=== PATIENT | female | born 1935 | race Caucasian/White ===

== ENCOUNTER 2017-05-28 23:54 | Emergency (ER) | payer BC, MEDICARE ==
[~2017-05-28] VITALS: Ht 162.6 cm; Wt 61.5 kg
[~2017-05-28 23:54] MED LIST: AMLO10TA2 PO; CARV3.1212 PO; LEVO50TA5 PO; LISI-167 PO; SIMV20TA3 PO; TRIA1TAB3 PO
[2017-05-29] MEDS ORDERED: ONDANSETRON ODT 4 MG ONE (00:45)
[2017-05-29] MEDS ORDERED: ONDANSETRON ODT 4 MG PO ONE (01:00)
[2017-05-29] MEDS ORDERED: METOCLOPRAMIDE 5 MG/ML, 2ML ONE (01:15)
[2017-05-29 01:16] LABS: BASOPHILS # (AUTO) 0.04 x10^3/uL (0-0.1); BASOPHILS % (AUTO) 1 % (0-1); EOSINOPHILS # (AUTO) 0.17 x10^3/uL (0-0.4); EOSINOPHILS % (AUTO) 2 % (1-7); LYMPHOCYTES # (AUTO) 1.44 x10^3/uL (1-3.4); LYMPHOCYTES % (AUTO) 17 % (22-44); MD NO; MEAN CORPUSCULAR HEMOGLOBIN 30.8 pg (27.0-34.8); MEAN CORPUSCULAR HGB CONC 33.6 g/dL (32.4-35.8); MEAN CORPUSCULAR VOLUME 91.7 fL (80-100); MEAN PLATELET VOLUME 8.8 fL (7.4-10.4); MONOCYTES # (AUTO) 0.47 x10^3/uL (0.2-0.8); MONOCYTES % (AUTO) 6 % (2-9); NEUTROPHILS # (AUTO) 6.39 x10^3/uL (1.8-6.8); NEUTROPHILS % (AUTO) 75 % (42-75); PLATELET COUNT 184 x10^3/uL (130-400); RED BLOOD COUNT 4.14 x10^6/uL (3.82-5.3); RED CELL DISTRIBUTION WIDTH 12.7 % (9.6-15.2)
[2017-05-29 01:29] LABS: ALANINE AMINOTRANSFERASE 27 U/L (12-78); ALBUMIN 3.7 g/dL (3.4-5.0); ANION GAP 6 mmol/L (5-15); CALCIUM 9.1 mg/dL (8.5-10.1); CHLORIDE 112 mmol/L (98-107); CREATININE 1.01 mg/dL (0.55-1.02)
[2017-05-29] MEDS ORDERED: METOCLOPRAMIDE 5 MG/ML, 2ML IVPush ONE (01:30)
[2017-05-29] MEDS ORDERED: SODIUM CHLORIDE FLUSH 10ML SYR IVF ONE (01:30)
[2017-05-29 01:32] LABS: ALKALINE PHOSPHATASE 100 U/L (45-117); BILIRUBIN,TOTAL 0.4 mg/dL (0.2-1.0); TOTAL PROTEIN 7.6 g/dL (6.4-8.2); TROPONIN I < 0.015 ng/mL (0.000-0.045)
[2017-05-29 02:26] VITALS: BP 151/67
[2017-05-29] MEDS ORDERED: KETOROLAC 30 MG/1 ML ONE (02:37)
[2017-05-29] MEDS ORDERED: KETOROLAC 30 MG/1 ML IVPush ONE (03:00)
== END 2017-05-29 03:16 | disposition home or self-care (01) ==
LOC: ED 23:59
DX: R42 Dizziness and giddiness (principal); R11.0 Nausea; E78.5 Hyperlipidemia, unspecified; I10 Essential (primary) hypertension; E03.9 Hypothyroidism, unspecified
CPT/HCPCS: 36415; 71045; 80053; 84484; 85025; 93005; 96374; 96375; 99285; J1885; J2765; Q0162

== ENCOUNTER 2017-06-16 19:38 | Emergency (ER) | payer MEDICARE ==
[~2017-06-16] VITALS: Ht 162.6 cm; Wt 61.2 kg
[2017-06-16 20:20] LABS: BASOPHILS # (AUTO) 0.03 x10^3/uL (0-0.1); BASOPHILS % (AUTO) 0 % (0-1); EOSINOPHILS # (AUTO) 0.12 x10^3/uL (0-0.4); EOSINOPHILS % (AUTO) 2 % (1-7); LYMPHOCYTES # (AUTO) 1.82 x10^3/uL (1-3.4); LYMPHOCYTES % (AUTO) 25 % (22-44); MD NO; MEAN CORPUSCULAR HEMOGLOBIN 30.8 pg (27.0-34.8); MEAN CORPUSCULAR HGB CONC 33.6 g/dL (32.4-35.8); MEAN CORPUSCULAR VOLUME 91.6 fL (80-100); MEAN PLATELET VOLUME 8.1 fL (7.4-10.4); MONOCYTES # (AUTO) 0.58 x10^3/uL (0.2-0.8); MONOCYTES % (AUTO) 8 % (2-9); NEUTROPHILS # (AUTO) 4.83 x10^3/uL (1.8-6.8); NEUTROPHILS % (AUTO) 66 % (42-75); PLATELET COUNT 207 x10^3/uL (130-400); RED BLOOD COUNT 4.56 x10^6/uL (3.82-5.3); RED CELL DISTRIBUTION WIDTH 12.7 % (9.6-15.2)
[2017-06-16 20:32] LABS: ANION GAP 8 mmol/L (5-15); CALCIUM 9.4 mg/dL (8.5-10.1); CHLORIDE 108 mmol/L (98-107); CREATININE 1.33 mg/dL (0.55-1.02)
[2017-06-16 20:36] LABS: TROPONIN I < 0.015 ng/mL (0.000-0.045)
[2017-06-16] MEDS ORDERED: hydrALAzine 20 MG/ML, 1ML ONE (20:58)
[2017-06-16] MEDS ORDERED: hydrALAzine 20 MG/ML, 1ML IV ONE (21:00)
[2017-06-16] MEDS ORDERED: SODIUM CHLORIDE FLUSH 10ML SYR IVF ONE (21:00)
[2017-06-16 22:15] VITALS: BP 136/92
[2017-06-16] MEDS ORDERED: DEXAMETHASONE 4 MG TABLET PO ONE (23:30)
[2017-06-16] MEDS ORDERED: ACETAMINOPHEN 325 MG TABLET PO ONE (23:30)
[2017-06-16] MEDS ORDERED: ACETAMINOPHEN 325 MG TABLET ONE (23:34)
[2017-06-16] MEDS ORDERED: DEXAMETHASONE 4 MG TABLET ONE (23:34)
== END 2017-06-16 23:55 | disposition home or self-care (01) ==
LOC: ED 22:04
DX: I10 Essential (primary) hypertension (principal); R51 Headache; K21.9 Gastro-esophageal reflux disease without esophagitis; E78.5 Hyperlipidemia, unspecified; Z90.49 Acquired absence of other specified parts of digestive tract
CPT/HCPCS: 36415; 71045; 80048; 82040; 83880; 84484; 85025; 93005; 96374; 99285; J0360

== ENCOUNTER 2018-07-21 21:40 | Emergency (ER) | payer MEDICARE, BC ==
[~2018-07-21] VITALS: Ht 165.1 cm; Wt 64.0 kg
[~2018-07-21 21:40] MED LIST changes: -AMLO10TA2 PO; +AMLO10TA8 PO
[2018-07-21 21:44] VITALS: BP 153/85
[2018-07-21 22:29] LABS: BASOPHILS # (AUTO) 0.01 x10^3/uL (0-0.1); BASOPHILS % (AUTO) 0 % (0-1); EOSINOPHILS # (AUTO) 0.01 x10^3/uL (0-0.4); EOSINOPHILS % (AUTO) 0 % (1-7); LYMPHOCYTES # (AUTO) 0.98 x10^3/uL (1-3.4); LYMPHOCYTES % (AUTO) 8 % (22-44); MD NO; MEAN CORPUSCULAR HEMOGLOBIN 31.3 pg (27.0-34.8); MEAN CORPUSCULAR VOLUME 92.2 fL (80-100); MEAN PLATELET VOLUME 8.5 fL (7.4-10.4); MONOCYTES # (AUTO) 0.59 x10^3/uL (0.2-0.8); MONOCYTES % (AUTO) 5 % (2-9); NEUTROPHILS # (AUTO) 10.29 x10^3/uL (1.8-6.8); NEUTROPHILS % (AUTO) 87 % (42-75); PLATELET COUNT 226 x10^3/uL (130-400); RED BLOOD COUNT 4.04 x10^6/uL (3.82-5.3); RED CELL DISTRIBUTION WIDTH 13.2 % (9.6-15.2)
[2018-07-21] MEDS ORDERED: CYCLOBENZAPRINE 10 MG TABLET PO ONE (22:30)
[2018-07-21 22:40] LABS: ALANINE AMINOTRANSFERASE 22 U/L (12-78); ALBUMIN 3.8 g/dL (3.4-5.0); ANION GAP 7 mmol/L (5-15); CALCIUM 9.3 mg/dL (8.5-10.1); CHLORIDE 115 mmol/L (98-107); CREATININE 1.42 mg/dL (0.55-1.02)
[2018-07-21 22:44] LABS: ALKALINE PHOSPHATASE 93 U/L (45-117); BILIRUBIN,TOTAL 0.2 mg/dL (0.2-1.0); TOTAL PROTEIN 7.5 g/dL (6.4-8.2); TROPONIN I < 0.015 ng/mL (0.000-0.045)
[2018-07-21] MEDS ORDERED: CYCLOBENZAPRINE 10 MG TABLET ONE (22:49)
== END 2018-07-21 23:47 | disposition home or self-care (01) ==
LOC: ED 23:33
DX: R07.89 Other chest pain (principal); M54.2 Cervicalgia; I10 Essential (primary) hypertension; E78.5 Hyperlipidemia, unspecified; Z86.39 Personal history of other endocrine, nutritional and metabolic disease
CPT/HCPCS: 36415; 71045; 80053; 84484; 85025; 93005; 99284

== ENCOUNTER 2018-10-24 08:48 | Emergency (ER) | payer MEDICARE, BC ==
[~2018-10-24] VITALS: Ht 162.6 cm; Wt 61.5 kg
[2018-10-24 10:19] VITALS: BP 157/76
== END 2018-10-24 11:19 | disposition home or self-care (01) ==
LOC: ED 11:12
DX: M25.511 Pain in right shoulder (principal); M79.621 Pain in right upper arm; M79.631 Pain in right forearm; R07.89 Other chest pain; I10 Essential (primary) hypertension; E78.5 Hyperlipidemia, unspecified
CPT/HCPCS: 36415; 71045; 80048; 82040; 84484; 85025; 93005; 99284

== ENCOUNTER 2019-01-15 16:22 | Emergency (ER) | payer MEDICARE, BC ==
[~2019-01-15] VITALS: Ht 160 cm; Wt 58.9 kg
[~2019-01-15 16:22] MED LIST changes: +DOCU-131 PO; +DOXY100T PO; +METH750T2 PO; +OMEP-110 PO; +OXYC-302 PO
[2019-01-15 17:59] LABS: BASOPHILS # (AUTO) 0.01 x10^3/uL (0-0.1); BASOPHILS % (AUTO) 0 % (0-1); EOSINOPHILS # (AUTO) 0.13 x10^3/uL (0-0.4); EOSINOPHILS % (AUTO) 2 % (1-7); LYMPHOCYTES % (AUTO) 18 % (22-44); MD NO; MEAN CORPUSCULAR HEMOGLOBIN 31.1 pg (27.0-34.8); MEAN CORPUSCULAR HGB CONC 33.1 g/dL (32.4-35.8); MEAN PLATELET VOLUME 9.2 fL (7.4-10.4); MONOCYTES # (AUTO) 0.64 x10^3/uL (0.2-0.8); MONOCYTES % (AUTO) 8 % (2-9); NEUTROPHILS # (AUTO) 5.78 x10^3/uL (1.8-6.8); NEUTROPHILS % (AUTO) 73 % (42-75); PLATELET COUNT 195 x10^3/uL (130-400); RED BLOOD COUNT 4.13 x10^6/uL (3.82-5.3); RED CELL DISTRIBUTION WIDTH 13.7 % (9.6-15.2)
[2019-01-15 18:07] LABS: ALANINE AMINOTRANSFERASE 20 U/L (12-78); ALBUMIN 3.6 g/dL (3.4-5.0); ANION GAP 6 mmol/L (5-15); CALCIUM 9.3 mg/dL (8.5-10.1); CHLORIDE 107 mmol/L (98-107); CREATININE 1.47 mg/dL (0.55-1.02)
[2019-01-15 18:10] LABS: ALKALINE PHOSPHATASE 110 U/L (45-117); BILIRUBIN,TOTAL 0.5 mg/dL (0.2-1.0); TOTAL PROTEIN 8.1 g/dL (6.4-8.2)
--- NOTE | 2019-01-15 19:00 | NUR ---
first pt contact, pt walked to room with family member, wearing aspen collar as recent neck surgery, notes that she has been having epigastric pain for several days, seen at urgent care and given maalox, works temporarily then symnptoms return, pt takes pantoprazole
--- NOTE | 2019-01-15 19:03 | NUR ---
Leticia rn: Izaiah Galicia would like to be contacted for poc and potential d/c ride. [phone].
--- NOTE | 2019-01-15 19:07 | NUR ---
Leticia rn: Lights turned down and pt given warm blankets for comfort. Awaiting ct at this time. Ua sent to lab.
[2019-01-15 19:22] LABS: CULTURE INDICATED? YES; MICROSCOPIC INDICATED
--- NOTE | 2019-01-15 20:00 | NUR ---
resitng quietly, taking ice chips, very pleasant lady.
[2019-01-15 20:30] VITALS: BP 133/76
--- NOTE | 2019-01-15 21:00 | NUR ---
No changes, chart to MD for re-eval as all results back
[2019-01-15] MEDS ORDERED: FAMOTIDINE 20 MG TABLET ONE (21:18)
[2019-01-15] MEDS ORDERED: FAMOTIDINE 20 MG TABLET PO ONE (21:30)
[2019-01-15] MEDS ORDERED: OMNIPAQUE 350 MG/ML, 100ML BOTTLE ONE (23:44)
== END 2019-01-15 21:28 | disposition home or self-care (01) ==
LOC: ED 21:22
DX: K21.0 Gastro-esophageal reflux disease with esophagitis (principal); I10 Essential (primary) hypertension; E78.5 Hyperlipidemia, unspecified; Z90.49 Acquired absence of other specified parts of digestive tract; Z90.710 Acquired absence of both cervix and uterus
CPT/HCPCS: 36415; 74177; 80053; 81001; 83690; 85025; 87086; 93005; 99284; Q9967

== ENCOUNTER 2019-01-18 07:35 | Inpatient (IN) | payer MEDICARE, BC ==
[~2019-01-18] VITALS: Ht 160 cm; Wt 61.7 kg
[2019-01-18] MEDS ORDERED: MAALOX/HYOSCYAMINE/LIDOCAINE 45 ML BTL ONE (08:05)
--- NOTE | 2019-01-18 08:12 | NUR ---
TASK RN: MEDICATION ADMINISTERED PER ORDER. PT RESTING ON GURNEY. LAB JUST LEFT BEDSIDE. BEDSIDE.
--- NOTE | 2019-01-18 08:15 | NUR ---
EPIGASTRIC BURNING SINCE LAST FRIDAY. UNABLE TO SLEEP OR EAT FOR FOUR DAYS BECAUSE OF THE PAIN. HX OF SAME-CORRECTED WITH ESOPHAGEAL VALVE SURGERY YEARS AGO BUT NOW SYMPTOMS HAVE RETURNED. HAD NEGATIVE CT, CARAFATE/PROTONIX/MOM NOT HELPING WITH RESE HR TO 80. PROVIDER TO BEDSIDE PLAN TO AVOID PIV (FOR NOW PER PROVIDER REQUEST), VENIPUNCTURE LABS AND GI COCKTAIL W/ REFERRAL TO GI SPECIALIST
[2019-01-18 08:23] LABS: BASOPHILS # (AUTO) 0.03 x10^3/uL (0-0.1); BASOPHILS % (AUTO) 1 % (0-1); EOSINOPHILS # (AUTO) 0.07 x10^3/uL (0-0.4); EOSINOPHILS % (AUTO) 1 % (1-7); LYMPHOCYTES # (AUTO) 0.89 x10^3/uL (1-3.4); LYMPHOCYTES % (AUTO) 14 % (22-44); MD NO; MEAN CORPUSCULAR HEMOGLOBIN 30.8 pg (27.0-34.8); MEAN CORPUSCULAR HGB CONC 33.1 g/dL (32.4-35.8); MEAN CORPUSCULAR VOLUME 93.1 fL (80-100); MEAN PLATELET VOLUME 8.8 fL (7.4-10.4); MONOCYTES # (AUTO) 0.45 x10^3/uL (0.2-0.8); MONOCYTES % (AUTO) 7 % (2-9); NEUTROPHILS # (AUTO) 4.81 x10^3/uL (1.8-6.8); NEUTROPHILS % (AUTO) 77 % (42-75); PLATELET COUNT 170 x10^3/uL (130-400); RED BLOOD COUNT 3.99 x10^6/uL (3.82-5.3); RED CELL DISTRIBUTION WIDTH 13.9 % (9.6-15.2)
[2019-01-18] MEDS ORDERED: MAALOX/HYOSCYAMINE/LIDOCAINE 45 ML BTL PO ONE (08:30)
[2019-01-18 08:32] LABS: ALANINE AMINOTRANSFERASE 22 U/L (12-78); ALBUMIN 3.5 g/dL (3.4-5.0); ANION GAP 8 mmol/L (5-15); CALCIUM 9.3 mg/dL (8.5-10.1); CHLORIDE 106 mmol/L (98-107); CREATININE 1.68 mg/dL (0.55-1.02)
[2019-01-18 08:35] LABS: ALKALINE PHOSPHATASE 107 U/L (45-117); BILIRUBIN,TOTAL 0.6 mg/dL (0.2-1.0); TOTAL PROTEIN 7.6 g/dL (6.4-8.2)
--- NOTE | 2019-01-18 08:50 | NUR ---
With reassessment patient reports epigastric pain minimally improved from /10 to 7/10 Provider made aware
[2019-01-18] MEDS ORDERED: SODIUM CHLORIDE FLUSH 10ML SYR IVF ONE (09:00)
[2019-01-18] MEDS ORDERED: FAMOTIDINE 20 MG/2 ML IV ONE (09:00)
[2019-01-18] MEDS ORDERED: SODIUM CHLORIDE 0.9% 1,000ML IVBOLUS ONE (09:00)
--- NOTE | 2019-01-18 09:15 | NUR ---
medic at bedside attempting place pic
[2019-01-18] MEDS ORDERED: FAMOTIDINE 20 MG/2 ML ONE (09:38)
--- NOTE | 2019-01-18 09:40 | NUR ---
MEDICATED PER EMAR (ANTACID/IVF)
--- NOTE | 2019-01-18 09:49 | NUR ---
TO RADIOLOGY FOR ESOPHOGRAM
[2019-01-18] MEDS ORDERED: SODIUM CHLORIDE 0.9% 1,000 ML IV ONE (10:12)
[2019-01-18] MEDS ORDERED: SODIUM CHLORIDE FLUSH 10ML SYR IVF PRN (10:30)
--- NOTE | 2019-01-18 11:18 | NUR ---
ua collected sent to lab
[2019-01-18] MEDS ORDERED: SUCR1ORA5 PO (11:27)
[2019-01-18 11:33] LABS: MICROSCOPIC NOT IND
[2019-01-18 11:45] VITALS: BP 122/76
[2019-01-18 12:07] VITALS: BP 122/76
[2019-01-18] MEDS ORDERED: MORPHINE SULFATE 4 MG/ML, 1ML IVPush PRN (13:00)
[2019-01-18] MEDS ORDERED: MAALOX/HYOSCYAMINE/LIDOCAINE 45 ML BTL PO PRN (13:00)
[2019-01-18] MEDS ORDERED: LABETALOL 5MG/ML, 20ML IVPush PRN (14:30)
[2019-01-18] MEDS ORDERED: ONDANSETRON ODT 4 MG PO PRN (14:30)
[2019-01-18] MEDS ORDERED: ONDANSETRON 2MG/ML, 2ML IVPush PRN (14:30)
[2019-01-18] MEDS: SUCRALFATE 1 GM/10 ML UDC PO SCH ×2 (15:42→20:17)
[2019-01-18] MEDS: PANTOPRAZOLE 40 MG IV IVPush SCH (15:42)
[2019-01-18] MEDS: SODIUM CHLORIDE 0.9% 1,000 ML IV SCH ×2 (15:42→21:00)
[2019-01-18] MEDS: FLUCONAZOLE 200 MG/100 ML 100 ML IV SCH (17:28)
[2019-01-18 19:35] VITALS: BP 145/78
[2019-01-19] MEDS ORDERED: DEXTROSE 5% 1,000 ML IV SCH
[2019-01-19 01:25] VITALS: BP 153/80
[2019-01-19] MEDS: PANTOPRAZOLE 40 MG IV IVPush SCH (04:23)
[2019-01-19] MEDS: SODIUM CHLORIDE 0.9% 1,000 ML IV SCH ×3 (05:00→21:00)
[2019-01-19 05:06] LABS: BASOPHILS # (AUTO) 0.05 x10^3/uL (0-0.1); BASOPHILS % (AUTO) 1 % (0-1); EOSINOPHILS % (AUTO) 2 % (1-7); LYMPHOCYTES # (AUTO) 1.21 x10^3/uL (1-3.4); LYMPHOCYTES % (AUTO) 20 % (22-44); MD NO; MEAN CORPUSCULAR HEMOGLOBIN 30.7 pg (27.0-34.8); MEAN CORPUSCULAR HGB CONC 32.9 g/dL (32.4-35.8); MEAN CORPUSCULAR VOLUME 93.3 fL (80-100); MEAN PLATELET VOLUME 8.9 fL (7.4-10.4); MONOCYTES # (AUTO) 0.58 x10^3/uL (0.2-0.8); MONOCYTES % (AUTO) 10 % (2-9); NEUTROPHILS # (AUTO) 4.05 x10^3/uL (1.8-6.8); NEUTROPHILS % (AUTO) 68 % (42-75); PLATELET COUNT 148 x10^3/uL (130-400); RED BLOOD COUNT 3.61 x10^6/uL (3.82-5.3); RED CELL DISTRIBUTION WIDTH 13.7 % (9.6-15.2)
[2019-01-19 05:18] LABS: ALANINE AMINOTRANSFERASE 21 U/L (12-78); ALBUMIN 3.1 g/dL (3.4-5.0); ANION GAP 8 mmol/L (5-15); CALCIUM 8.7 mg/dL (8.5-10.1); CHLORIDE 110 mmol/L (98-107); CREATININE 1.04 mg/dL (0.55-1.02)
[2019-01-19 05:20] LABS: ALKALINE PHOSPHATASE 91 U/L (45-117); BILIRUBIN,TOTAL 0.6 mg/dL (0.2-1.0); TOTAL PROTEIN 6.6 g/dL (6.4-8.2)
[2019-01-19 07:09] VITALS: BP 132/75
[2019-01-19] MEDS: LEVOTHYROXINE 75 MCG TABLET PO SCH (08:24)
[2019-01-19] MEDS: SUCRALFATE 1 GM/10 ML UDC PO SCH ×3 (08:24→16:09)
[2019-01-19] MEDS: AMLODIPINE 5 MG TABLET PO SCH (08:24)
[2019-01-19] MEDS: SIMVASTATIN 20 MG TABLET PO SCH (08:25)
[2019-01-19] MEDS: CARVEDILOL 3.125 MG TABLET PO SCH (08:25)
[2019-01-19] MEDS ORDERED: POTASSIUM PHOSPHATE 44 MEQ in SODIUM CHLORIDE 0.9% 500 ML IV ONE (08:30)
[2019-01-19 12:34] VITALS: BP 150/84
[2019-01-19] MEDS: PANTOPROZOLE 40MG TABLET PO SCH (16:08)
[2019-01-19] MEDS: ACETAMINOPHEN 325 MG TABLET PO PRN (16:15)
[2019-01-19] MEDS ORDERED: POTASSIUM CHLORIDE 40 MEQ in SODIUM CHLORIDE 0.9% 500 ML IV ONE (16:30)
[2019-01-19 20:09] VITALS: BP 129/81
[2019-01-20] MEDS: SUCRALFATE 1 GM/10 ML UDC PO SCH ×5 (00:16→20:20)
[2019-01-20] MEDS: FLUCONAZOLE 200 MG/100 ML 100 ML IV SCH (00:44)
[2019-01-20 02:49] VITALS: BP 131/86
[2019-01-20] MEDS: SODIUM CHLORIDE 0.9% 1,000 ML IV SCH ×2 (05:00→09:57)
[2019-01-20] MEDS: PANTOPROZOLE 40MG TABLET PO SCH ×2 (06:07→16:20)
[2019-01-20 06:29] LABS: ALANINE AMINOTRANSFERASE 19 U/L (12-78); ALBUMIN 2.9 g/dL (3.4-5.0); ANION GAP 6 mmol/L (5-15); CALCIUM 8.7 mg/dL (8.5-10.1); CHLORIDE 115 mmol/L (98-107); CREATININE 0.82 mg/dL (0.55-1.02)
[2019-01-20 06:32] LABS: ALKALINE PHOSPHATASE 92 U/L (45-117); BILIRUBIN,TOTAL 0.5 mg/dL (0.2-1.0); TOTAL PROTEIN 6.2 g/dL (6.4-8.2)
[2019-01-20 07:45] VITALS: BP 158/82
[2019-01-20] MEDS ORDERED: MAGNESIUM SULFATE PMX 2GM/50ML 50 ML IV ONE (08:30)
[2019-01-20] MEDS: AMLODIPINE 5 MG TABLET PO SCH (08:34)
[2019-01-20] MEDS: LEVOTHYROXINE 75 MCG TABLET PO SCH (08:34)
[2019-01-20] MEDS: SIMVASTATIN 20 MG TABLET PO SCH (08:34)
[2019-01-20] MEDS: CARVEDILOL 3.125 MG TABLET PO SCH (08:34)
[2019-01-20 09:48] LABS: OCCULT BLOOD POSITIVE (NEGATIVE)
[2019-01-20] MEDS ORDERED: POTASSIUM PHOSPHATE 44 MEQ in SODIUM CHLORIDE 0.9% 500 ML IV ONE (11:00)
[2019-01-20 12:43] VITALS: BP 152/82
[2019-01-20] MEDS ORDERED: PROPOFOL 10 MG/ML, 50ML ONE (14:03)
[2019-01-20] MEDS ORDERED: GOLYTELY 4,000ML ORAL.SOL PO ONE (14:30)
[2019-01-20] MEDS ORDERED: ACETAMINOPHEN 325 MG TABLET PO PRN (15:00)
[2019-01-20] MEDS ORDERED: METOPROLOL 1 MG/ML, 5ML IV PRN (15:00)
[2019-01-20] MEDS ORDERED: FENTANYL PF 100 MCG/2ML IV PRN (15:00)
[2019-01-20] MEDS ORDERED: ONDANSETRON 2MG/ML, 2ML IV PRN (15:00)
[2019-01-20 19:42] VITALS: BP 117/71
[2019-01-20] MEDS: MAALOX/HYOSCYAMINE/LIDOCAINE 45 ML BTL PO PRN ×2 (22:54→22:55)
[2019-01-20] MEDS ORDERED: MAALOX/HYOSCYAMINE/LIDOCAINE 45 ML BTL PO PRN (23:00)
[2019-01-21] MEDS: FLUCONAZOLE 200 MG/100 ML 100 ML IV SCH (00:16)
[2019-01-21 01:15] VITALS: BP 129/70
[2019-01-21 05:55] LABS: ALBUMIN 2.9 g/dL (3.4-5.0); ANION GAP 7 mmol/L (5-15); CALCIUM 8.3 mg/dL (8.5-10.1); CHLORIDE 114 mmol/L (98-107)
[2019-01-21 06:00] LABS: ALANINE AMINOTRANSFERASE 21 U/L (12-78); ALKALINE PHOSPHATASE 92 U/L (45-117); BILIRUBIN,TOTAL 0.6 mg/dL (0.2-1.0); CREATININE 0.76 mg/dL (0.55-1.02); TOTAL PROTEIN 6.1 g/dL (6.4-8.2)
[2019-01-21] MEDS: PANTOPROZOLE 40MG TABLET PO SCH (06:11)
[2019-01-21] MEDS: SUCRALFATE 1 GM/10 ML UDC PO SCH ×4 (07:00→20:16)
[2019-01-21 07:36] VITALS: BP_SYST 112; BP_SYST 155; BP_DIAS 70; BP_DIAS 75
[2019-01-21] MEDS ORDERED: MIDAZOLAM 1 MG/ML, 5ML ONE (08:47)
[2019-01-21] MEDS ORDERED: FENTANYL PF 100 MCG/2ML ONE (08:47)
[2019-01-21] MEDS: LEVOTHYROXINE 75 MCG TABLET PO SCH ×2 (09:00→10:58)
[2019-01-21] MEDS: SIMVASTATIN 20 MG TABLET PO SCH ×2 (09:00→10:58)
[2019-01-21] MEDS: AMLODIPINE 5 MG TABLET PO SCH (09:00)
[2019-01-21] MEDS: CARVEDILOL 3.125 MG TABLET PO SCH ×2 (09:00→10:57)
[2019-01-21] MEDS: SODIUM CHLORIDE 0.9% 1,000 ML IV SCH ×2 (10:00→18:00)
[2019-01-21] MEDS: OMEPRAZOLE/SOD. BICARB. PACKET PO SCH ×2 (11:30→20:16)
[2019-01-21 12:54] VITALS: BP 116/66
[2019-01-21 19:10] VITALS: BP 145/79
[2019-01-22] MEDS: FLUCONAZOLE 200 MG/100 ML 100 ML IV SCH (00:01)
[2019-01-22 00:42] VITALS: BP 135/74
[2019-01-22] MEDS: SODIUM CHLORIDE 0.9% 1,000 ML IV SCH ×2 (02:54→11:00)
[2019-01-22] MEDS ORDERED: CALCIUM CARBONATE 500 MG TAB.CHEW ONE (04:40)
[2019-01-22] MEDS ORDERED: CALCIUM CARBONATE 500 MG TAB.CHEW PO ONE (05:00)
[2019-01-22] MEDS: SUCRALFATE 1 GM/10 ML UDC PO SCH ×4 (06:00→21:00)
[2019-01-22 06:16] LABS: BASOPHILS # (AUTO) 0.03 x10^3/uL (0-0.1); BASOPHILS % (AUTO) 1 % (0-1); EOSINOPHILS # (AUTO) 0.07 x10^3/uL (0-0.4); EOSINOPHILS % (AUTO) 1 % (1-7); LYMPHOCYTES # (AUTO) 1.15 x10^3/uL (1-3.4); LYMPHOCYTES % (AUTO) 18 % (22-44); MD NO; MEAN CORPUSCULAR HEMOGLOBIN 31.4 pg (27.0-34.8); MEAN CORPUSCULAR HGB CONC 32.9 g/dL (32.4-35.8); MEAN CORPUSCULAR VOLUME 95.5 fL (80-100); MEAN PLATELET VOLUME 9.3 fL (7.4-10.4); MONOCYTES # (AUTO) 0.47 x10^3/uL (0.2-0.8); MONOCYTES % (AUTO) 7 % (2-9); NEUTROPHILS # (AUTO) 4.83 x10^3/uL (1.8-6.8); NEUTROPHILS % (AUTO) 74 % (42-75); PLATELET COUNT 138 x10^3/uL (130-400); RED BLOOD COUNT 3.53 x10^6/uL (3.82-5.3); RED CELL DISTRIBUTION WIDTH 13.8 % (9.6-15.2)
[2019-01-22 06:29] LABS: ALBUMIN 2.9 g/dL (3.4-5.0); ANION GAP 8 mmol/L (5-15); CALCIUM 8.7 mg/dL (8.5-10.1); CHLORIDE 113 mmol/L (98-107)
[2019-01-22 06:33] LABS: ALANINE AMINOTRANSFERASE 21 U/L (12-78); ALKALINE PHOSPHATASE 93 U/L (45-117); BILIRUBIN,TOTAL 0.6 mg/dL (0.2-1.0); CREATININE 0.73 mg/dL (0.55-1.02); TOTAL PROTEIN 6.3 g/dL (6.4-8.2)
[2019-01-22 07:29] VITALS: BP 171/81
[2019-01-22] MEDS: OMEPRAZOLE/SOD. BICARB. PACKET PO SCH ×2 (08:23→19:48)
[2019-01-22] MEDS: SIMVASTATIN 20 MG TABLET PO SCH (08:23)
[2019-01-22] MEDS: CARVEDILOL 3.125 MG TABLET PO SCH (08:24)
[2019-01-22] MEDS: LEVOTHYROXINE 75 MCG TABLET PO SCH (08:24)
[2019-01-22] MEDS: AMLODIPINE 5 MG TABLET PO SCH (08:24)
[2019-01-22] MEDS ORDERED: MAGNESIUM SULFATE 4 GM in SODIUM CHLORIDE 0.9% 100 ML IV ONE (08:30)
[2019-01-22] MEDS ORDERED: POTASSIUM PHOSPHATE 44 MEQ in SODIUM CHLORIDE 0.9% 500 ML IV SCH (08:30)
[2019-01-22 13:33] VITALS: BP 153/91
[2019-01-22] MEDS: POTASSIUM CHLORIDE 20 MEQ TAB.ER.PRT PO SCH ×2 (13:34→18:05)
[2019-01-22] MEDS: POTASSIUM PHOSPHATE 44 MEQ in SODIUM CHLORIDE 0.9% 500 ML IV SCH ×2 (13:35→23:02)
[2019-01-22] MEDS ORDERED: TRAZODONE 50MG TABLET PO PRN (16:00)
[2019-01-22] MEDS ORDERED: POTASSIUM CHLORIDE 20 MEQ TAB.ER.PRT ONE (18:03)
[2019-01-22 19:32] VITALS: BP 145/79
[2019-01-22 19:44] VITALS: BP 145/77
[2019-01-23] MEDS: FLUCONAZOLE 200 MG/100 ML 100 ML IV SCH (00:34)
[2019-01-23] MEDS: ACETAMINOPHEN 325 MG TABLET PO PRN (01:52)
[2019-01-23 02:05] VITALS: BP 115/75
[2019-01-23 05:57] LABS: ANION GAP 5 mmol/L (5-15); CALCIUM 7.7 mg/dL (8.5-10.1); CHLORIDE 115 mmol/L (98-107); CREATININE 0.77 mg/dL (0.55-1.02)
[2019-01-23 08:08] VITALS: BP 120/76
[2019-01-23] MEDS ORDERED: ONDA4TAB13 PO (09:18)
[2019-01-23] MEDS ORDERED: TRAZ50TA66 PO (09:18)
[2019-01-23] MEDS ORDERED: Maalox/Hyoscyamine/Lidocaine PO (09:18)
[2019-01-23] MEDS ORDERED: OMEP1PAC PO ×2 (09:19)
[2019-01-23] MEDS: OMEPRAZOLE/SOD. BICARB. PACKET PO SCH (09:25)
[2019-01-23] MEDS: CARVEDILOL 3.125 MG TABLET PO SCH (09:28)
[2019-01-23] MEDS: LEVOTHYROXINE 75 MCG TABLET PO SCH (09:28)
[2019-01-23] MEDS: SIMVASTATIN 20 MG TABLET PO SCH (09:29)
[2019-01-23] MEDS: AMLODIPINE 5 MG TABLET PO SCH (09:29)
[2019-01-23] MEDS: SODIUM CHLORIDE 0.9% 1,000 ML IV SCH (09:30)
[2019-01-23 13:22] VITALS: BP 113/68
[2019-01-23] MEDS ORDERED: OMEP40CA42 PO (16:05)
== END 2019-01-23 14:39 | disposition home health service (06) | DRG 391 ==
LOC: ED 07:55 → EDIP 10:12 → 3N 11:25 → DCLOUNGE 01-23 14:33
PROVIDERS: ADMIT Hospitalist; ATTEND Internal Medicine
PROC: BD11YZZ Fluoroscopy of Esophagus using Other Contrast (ICD-10-PCS; 2019-01-18)
PROC: 0D718ZZ Dilation of Upper Esophagus, Via Natural or Artificial Opening Endoscopic (ICD-10-PCS; 2019-01-20)
PROC: 0DB58ZX Excision of Esophagus, Via Natural or Artificial Opening Endoscopic, Diagnostic (ICD-10-PCS; 2019-01-20)
PROC: 0DB68ZX Excision of Stomach, Via Natural or Artificial Opening Endoscopic, Diagnostic (ICD-10-PCS; 2019-01-20)
PROC: 0DJD8ZZ Inspection of Lower Intestinal Tract, Via Natural or Artificial Opening Endoscopic (ICD-10-PCS; principal; 2019-01-21 09:00)
DX: K22.8 Other specified diseases of esophagus (principal); N17.0 Acute kidney failure with tubular necrosis; I12.9 Hypertensive chronic kidney disease with stage 1 through stage 4 chronic kidney disease, or unspecified chronic kidney disease; K29.40 Chronic atrophic gastritis without bleeding; E03.9 Hypothyroidism, unspecified; E78.5 Hyperlipidemia, unspecified; E83.39 Other disorders of phosphorus metabolism; E83.42 Hypomagnesemia; E86.0 Dehydration; F41.9 Anxiety disorder, unspecified; R13.10 Dysphagia, unspecified; G47.00 Insomnia, unspecified; K57.30 Diverticulosis of large intestine without perforation or abscess without bleeding; N18.9 Chronic kidney disease, unspecified; N28.1 Cyst of kidney, acquired; R62.7 Adult failure to thrive; Z68.24 Body mass index [BMI] 24.0-24.9, adult; Z83.3 Family history of diabetes mellitus; Z90.710 Acquired absence of both cervix and uterus; Z88.0 Allergy status to penicillin; K21.0 Gastro-esophageal reflux disease with esophagitis
CPT/HCPCS: 36415; 74018; 74177; 74220; 80048; 80053; 81001; 81003; 82272; 82607; 82728; 83540; 83550; 83690; 83735; 84100; 85014; 85018; 85025; 87086; 88305; 93005; 96361; 96374; 99152; 99153; 99284; G0378; J2250; J2405; J2704; J3010; J3475; J3480; J7070; Q9967; C9113; J1450; J3490; J7030; J7040

== ENCOUNTER 2019-01-30 07:52 | Inpatient (IN) | payer MEDICARE, BC ==
[~2019-01-30] VITALS: Ht 160 cm; Wt 60.1 kg
[~2019-01-30 07:52] MED LIST changes: +Maalox/Hyoscyamine/Lidocaine PO; +OMEP1PAC PO; +OMEP40CA42 PO; +ONDA4TAB13 PO; +SUCR1ORA5 PO; +TRAZ50TA66 PO
--- NOTE | 2019-01-30 08:45 | NUR ---
PT GIVEN CUP FOR UA, WOULD LIKE TO TRY TO VOID BEFORE STRAIGHT CATH
[2019-01-30 08:49] LABS: BASOPHILS # (AUTO) 0.06 x10^3/uL (0-0.1); BASOPHILS % (AUTO) 1 % (0-1); EOSINOPHILS # (AUTO) 0.05 x10^3/uL (0-0.4); EOSINOPHILS % (AUTO) 1 % (1-7); LYMPHOCYTES # (AUTO) 1.15 x10^3/uL (1-3.4); LYMPHOCYTES % (AUTO) 17 % (22-44); MD NO; MEAN CORPUSCULAR HEMOGLOBIN 30.9 pg (27.0-34.8); MEAN CORPUSCULAR VOLUME 93.6 fL (80-100); MEAN PLATELET VOLUME 8.9 fL (7.4-10.4); MONOCYTES # (AUTO) 0.48 x10^3/uL (0.2-0.8); MONOCYTES % (AUTO) 7 % (2-9); NEUTROPHILS # (AUTO) 5.02 x10^3/uL (1.8-6.8); NEUTROPHILS % (AUTO) 74 % (42-75); PLATELET COUNT 229 x10^3/uL (130-400); RED BLOOD COUNT 3.99 x10^6/uL (3.82-5.3); RED CELL DISTRIBUTION WIDTH 13.5 % (9.6-15.2)
[2019-01-30 08:56] LABS: ALANINE AMINOTRANSFERASE 28 U/L (12-78); ALBUMIN 3.3 g/dL (3.4-5.0); ANION GAP 7 mmol/L (5-15); CALCIUM 9.4 mg/dL (8.5-10.1); CHLORIDE 104 mmol/L (98-107); CREATININE 1.08 mg/dL (0.55-1.02)
[2019-01-30 09:00] LABS: ALKALINE PHOSPHATASE 103 U/L (45-117); BILIRUBIN,TOTAL 0.6 mg/dL (0.2-1.0); TOTAL PROTEIN 7.6 g/dL (6.4-8.2); TROPONIN I < 0.015 ng/mL (0.000-0.045)
[2019-01-30 09:10] LABS: RAPID INFLUENZA A Negative (Negative); RAPID INFLUENZA B Negative (Negative)
[2019-01-30] MEDS ORDERED: SODIUM CHLORIDE 0.9% 1,000 ML IV ONE (09:19)
--- NOTE | 2019-01-30 09:28 | NUR ---
PT REFUSING GI COCTAIL AND ATIVAN AT THIS TIME
[2019-01-30] MEDS ORDERED: LORazepam 2 MG/ML, 1ML IVPush ONE (09:30)
[2019-01-30] MEDS ORDERED: SODIUM CHLORIDE FLUSH 10ML SYR IVF ONE (09:30)
[2019-01-30] MEDS ORDERED: MAALOX/HYOSCYAMINE/LIDOCAINE 45 ML BTL PO ONE (09:30)
[2019-01-30 09:35] LABS: MICROSCOPIC INDICATED
[2019-01-30 09:36] LABS: CULTURE INDICATED? YES
--- NOTE | 2019-01-30 09:44 | NUR ---
IVF INFUSING, AWAITING BED ASSIGNMENT
--- NOTE | 2019-01-30 10:18 | NUR ---
REPORT TO ERICA HEMPHILL
[2019-01-30] MEDS ORDERED: MAALOX/HYOSCYAMINE/LIDOCAINE 45 ML BTL PO PRN (11:00)
[2019-01-30] MEDS ORDERED: TRAZODONE 50MG TABLET PO PRN (11:00)
[2019-01-30] MEDS ORDERED: ESCI10TA PO (11:09)
[2019-01-30 11:23] LABS: HCT (SEDRATE) 37.3 % (34.6-47.8)
[2019-01-30 11:34] LABS: C-REACTIVE PROTEIN, QUANT 0.38 mg/dL (0.02-0.49)
[2019-01-30] MEDS: ESCITALOPRAM 10MG TABLET PO SCH (11:46)
[2019-01-30] MEDS: PANTOPRAZOLE 40 MG IV IVPush SCH (11:46)
[2019-01-30] MEDS: SUCRALFATE 1 GM/10 ML UDC PO SCH ×3 (11:47→19:40)
[2019-01-30] MEDS: SODIUM CHLORIDE 0.9% 1,000 ML IV SCH (11:47)
[2019-01-30 14:04] VITALS: BP 109/70
[2019-01-30] MEDS: LISINOPRIL 40 MG TABLET PO SCH (19:40)
[2019-01-30 20:06] VITALS: BP 149/76
[2019-01-31] MEDS ORDERED: ACETAMINOPHEN 325 MG TABLET ONE (00:18)
[2019-01-31] MEDS: SODIUM CHLORIDE 0.9% 1,000 ML IV SCH ×2 (00:21→09:03)
[2019-01-31] MEDS: PANTOPRAZOLE 40 MG IV IVPush SCH ×2 (00:21→12:18)
[2019-01-31] MEDS: ACETAMINOPHEN 325 MG TABLET PO PRN (00:22)
[2019-01-31 00:54] VITALS: BP 131/72
[2019-01-31 05:53] LABS: BASOPHILS # (AUTO) 0.03 x10^3/uL (0-0.1); BASOPHILS % (AUTO) 1 % (0-1); EOSINOPHILS # (AUTO) 0.15 x10^3/uL (0-0.4); EOSINOPHILS % (AUTO) 3 % (1-7); LYMPHOCYTES # (AUTO) 1.52 x10^3/uL (1-3.4); LYMPHOCYTES % (AUTO) 27 % (22-44); MD NO; MEAN CORPUSCULAR HEMOGLOBIN 30.8 pg (27.0-34.8); MEAN CORPUSCULAR HGB CONC 32.9 g/dL (32.4-35.8); MEAN CORPUSCULAR VOLUME 93.8 fL (80-100); MEAN PLATELET VOLUME 9.2 fL (7.4-10.4); MONOCYTES # (AUTO) 0.51 x10^3/uL (0.2-0.8); MONOCYTES % (AUTO) 9 % (2-9); NEUTROPHILS # (AUTO) 3.35 x10^3/uL (1.8-6.8); NEUTROPHILS % (AUTO) 60 % (42-75); PLATELET COUNT 196 x10^3/uL (130-400); RED BLOOD COUNT 3.68 x10^6/uL (3.82-5.3); RED CELL DISTRIBUTION WIDTH 13.8 % (9.6-15.2)
[2019-01-31 07:56] LABS: ALANINE AMINOTRANSFERASE 31 U/L (12-78); ALBUMIN 2.8 g/dL (3.4-5.0); ANION GAP 6 mmol/L (5-15); CALCIUM 9.1 mg/dL (8.5-10.1); CHLORIDE 109 mmol/L (98-107); CREATININE 0.92 mg/dL (0.55-1.02)
[2019-01-31 07:59] LABS: ALKALINE PHOSPHATASE 89 U/L (45-117); BILIRUBIN,TOTAL 0.4 mg/dL (0.2-1.0); TOTAL PROTEIN 6.5 g/dL (6.4-8.2)
[2019-01-31 08:07] VITALS: BP 152/82
[2019-01-31] MEDS: SIMVASTATIN 40 MG TABLET PO SCH (08:49)
[2019-01-31] MEDS: LISINOPRIL 40 MG TABLET PO SCH ×2 (08:49→21:40)
[2019-01-31] MEDS: SUCRALFATE 1 GM/10 ML UDC PO SCH ×4 (08:49→21:40)
[2019-01-31] MEDS: ESCITALOPRAM 10MG TABLET PO SCH (08:49)
[2019-01-31] MEDS ORDERED: LEVOTHYROXINE 75 MCG TABLET PO SCH (09:00)
[2019-01-31] MEDS ORDERED: OMNIPAQUE 350 MG/ML, 150 ML BOTTLE ONE (11:00)
[2019-01-31] MEDS: ACETYLCYSTEINE 600 MG CAPSULE PO SCH ×2 (12:19→21:47)
[2019-01-31 13:35] VITALS: BP 124/72
[2019-01-31 13:36] LABS: CLOSTRIDIUM DIFFICILE ANTIGEN NEGATIVE; CLOSTRIDIUM DIFFICILE TOXIN NEGATIVE (Negative)
[2019-01-31] MEDS ORDERED: HEPARIN 5,000 UNITS/ML, 1ML IV PRN (14:00)
[2019-01-31] MEDS ORDERED: HEPARIN 5,000 UNITS/ML, 1ML IV ONE (14:00)
[2019-01-31] MEDS: PANTOPROZOLE 40MG TABLET PO SCH (16:22)
[2019-01-31] MEDS: HEPARIN 25,000 UNITS/500ML PMX 500 ML IV PRN (16:32)
[2019-01-31 19:22] VITALS: BP 172/77
[2019-02-01] MEDS: SODIUM CHLORIDE 0.9% 1,000 ML IV SCH ×3 (00:45→21:21)
[2019-02-01 00:49] VITALS: BP 97/58
[2019-02-01 05:44] LABS: BASOPHILS # (AUTO) 0.04 x10^3/uL (0-0.1); BASOPHILS % (AUTO) 1 % (0-1); EOSINOPHILS # (AUTO) 0.24 x10^3/uL (0-0.4); EOSINOPHILS % (AUTO) 4 % (1-7); LYMPHOCYTES # (AUTO) 1.52 x10^3/uL (1-3.4); LYMPHOCYTES % (AUTO) 25 % (22-44); MD NO; MEAN CORPUSCULAR HEMOGLOBIN 30.7 pg (27.0-34.8); MEAN CORPUSCULAR VOLUME 92.9 fL (80-100); MEAN PLATELET VOLUME 9.4 fL (7.4-10.4); MONOCYTES # (AUTO) 0.53 x10^3/uL (0.2-0.8); MONOCYTES % (AUTO) 9 % (2-9); NEUTROPHILS # (AUTO) 3.66 x10^3/uL (1.8-6.8); NEUTROPHILS % (AUTO) 61 % (42-75); PLATELET COUNT 188 x10^3/uL (130-400); RED BLOOD COUNT 3.69 x10^6/uL (3.82-5.3); RED CELL DISTRIBUTION WIDTH 13.5 % (9.6-15.2)
[2019-02-01 05:46] LABS: ALBUMIN 3.1 g/dL (3.4-5.0); ANION GAP 6 mmol/L (5-15); CALCIUM 9.1 mg/dL (8.5-10.1); CHLORIDE 111 mmol/L (98-107)
[2019-02-01 05:50] LABS: ALANINE AMINOTRANSFERASE 29 U/L (12-78); ALKALINE PHOSPHATASE 96 U/L (45-117); BILIRUBIN,TOTAL 0.4 mg/dL (0.2-1.0); CREATININE 0.83 mg/dL (0.55-1.02); TOTAL PROTEIN 6.7 g/dL (6.4-8.2)
[2019-02-01] MEDS: PANTOPROZOLE 40MG TABLET PO SCH ×2 (06:01→16:43)
[2019-02-01] MEDS: LEVOTHYROXINE 75 MCG TABLET PO SCH (06:01)
[2019-02-01 06:47] VITALS: BP 144/68
[2019-02-01] MEDS: SUCRALFATE 1 GM/10 ML UDC PO SCH ×4 (08:25→20:33)
[2019-02-01] MEDS: SIMVASTATIN 40 MG TABLET PO SCH (08:25)
[2019-02-01] MEDS: ACETYLCYSTEINE 600 MG CAPSULE PO SCH ×2 (08:25→20:33)
[2019-02-01] MEDS: LISINOPRIL 40 MG TABLET PO SCH ×2 (08:25→20:33)
[2019-02-01] MEDS: ESCITALOPRAM 10MG TABLET PO SCH (08:25)
[2019-02-01 12:39] VITALS: BP 137/76
[2019-02-01] MEDS ORDERED: OMNIPAQUE 350 MG/ML, 100ML BOTTLE ONE (16:38)
[2019-02-01 19:42] VITALS: BP 158/83
[2019-02-01] MEDS: TRAZODONE 50MG TABLET PO PRN (21:21)
[2019-02-02 00:25] VITALS: BP 154/83
[2019-02-02] MEDS: HEPARIN 25,000 UNITS/500ML PMX 500 ML IV PRN (02:33)
[2019-02-02 05:26] LABS: BASOPHILS # (AUTO) 0.03 x10^3/uL (0-0.1); BASOPHILS % (AUTO) 1 % (0-1); EOSINOPHILS # (AUTO) 0.29 x10^3/uL (0-0.4); EOSINOPHILS % (AUTO) 5 % (1-7); LYMPHOCYTES % (AUTO) 22 % (22-44); MD NO; MEAN CORPUSCULAR HEMOGLOBIN 31.2 pg (27.0-34.8); MEAN CORPUSCULAR HGB CONC 33.1 g/dL (32.4-35.8); MEAN CORPUSCULAR VOLUME 94.3 fL (80-100); MEAN PLATELET VOLUME 9.9 fL (7.4-10.4); MONOCYTES # (AUTO) 0.52 x10^3/uL (0.2-0.8); MONOCYTES % (AUTO) 9 % (2-9); NEUTROPHILS # (AUTO) 3.75 x10^3/uL (1.8-6.8); NEUTROPHILS % (AUTO) 64 % (42-75); PLATELET COUNT 185 x10^3/uL (130-400); RED BLOOD COUNT 3.37 x10^6/uL (3.82-5.3); RED CELL DISTRIBUTION WIDTH 13.6 % (9.6-15.2)
[2019-02-02 05:34] LABS: CHLORIDE 113 mmol/L (98-107)
[2019-02-02 05:40] LABS: ALANINE AMINOTRANSFERASE 21 U/L (12-78); ALBUMIN 2.6 g/dL (3.4-5.0); ALKALINE PHOSPHATASE 83 U/L (45-117); ANION GAP 7 mmol/L (5-15); BILIRUBIN,TOTAL 0.3 mg/dL (0.2-1.0); CALCIUM 8.5 mg/dL (8.5-10.1); CREATININE 0.71 mg/dL (0.55-1.02); TOTAL PROTEIN 5.9 g/dL (6.4-8.2)
[2019-02-02] MEDS: PANTOPROZOLE 40MG TABLET PO SCH ×2 (06:08→16:21)
[2019-02-02] MEDS: LEVOTHYROXINE 75 MCG TABLET PO SCH (06:08)
[2019-02-02] MEDS: SODIUM CHLORIDE 0.9% 1,000 ML IV SCH ×2 (08:32→17:48)
[2019-02-02] MEDS: ESCITALOPRAM 10MG TABLET PO SCH (08:32)
[2019-02-02] MEDS: SIMVASTATIN 40 MG TABLET PO SCH (08:32)
[2019-02-02] MEDS: LISINOPRIL 40 MG TABLET PO SCH ×2 (08:32→19:59)
[2019-02-02] MEDS: SUCRALFATE 1 GM/10 ML UDC PO SCH ×4 (08:32→19:59)
[2019-02-02] MEDS: ACETYLCYSTEINE 600 MG CAPSULE PO SCH ×2 (08:33→19:59)
[2019-02-02 08:34] VITALS: BP 146/82
[2019-02-02] MEDS: ACETAMINOPHEN 325 MG TABLET PO PRN (09:49)
[2019-02-02] MEDS ORDERED: SUCR1ORA5 PO (12:38)
[2019-02-02] MEDS ORDERED: APIX5TAB4 PO ×2 (12:38)
[2019-02-02] MEDS: APIXABAN 5 MG TABLET PO SCH ×2 (12:51→19:59)
[2019-02-02 14:04] VITALS: BP 158/80
[2019-02-02] MEDS: POTASSIUM CHLORIDE 20 MEQ TAB.ER.PRT PO SCH ×2 (16:21→19:59)
[2019-02-02] MEDS ORDERED: OMNIPAQUE 350 MG/ML, 150 ML BOTTLE ONE (17:11)
[2019-02-02 19:55] VITALS: BP 160/74
[2019-02-02] MEDS: TRAZODONE 50MG TABLET PO PRN (22:22)
[2019-02-03] MEDS: ACETAMINOPHEN 325 MG TABLET PO PRN (01:11)
[2019-02-03 01:39] VITALS: BP 148/79
[2019-02-03] MEDS: SODIUM CHLORIDE 0.9% 1,000 ML IV SCH (03:00)
[2019-02-03 05:36] LABS: BASOPHILS # (AUTO) 0.04 x10^3/uL (0-0.1); BASOPHILS % (AUTO) 1 % (0-1); EOSINOPHILS % (AUTO) 4 % (1-7); LYMPHOCYTES # (AUTO) 1.26 x10^3/uL (1-3.4); LYMPHOCYTES % (AUTO) 26 % (22-44); MD NO; MEAN CORPUSCULAR HEMOGLOBIN 30.5 pg (27.0-34.8); MEAN CORPUSCULAR HGB CONC 32.9 g/dL (32.4-35.8); MEAN CORPUSCULAR VOLUME 92.7 fL (80-100); MEAN PLATELET VOLUME 9.2 fL (7.4-10.4); MONOCYTES # (AUTO) 0.39 x10^3/uL (0.2-0.8); MONOCYTES % (AUTO) 8 % (2-9); NEUTROPHILS # (AUTO) 2.99 x10^3/uL (1.8-6.8); NEUTROPHILS % (AUTO) 61 % (42-75); PLATELET COUNT 173 x10^3/uL (130-400); RED BLOOD COUNT 3.09 x10^6/uL (3.82-5.3); RED CELL DISTRIBUTION WIDTH 13.8 % (9.6-15.2)
[2019-02-03 05:46] LABS: ANION GAP 7 mmol/L (5-15); CALCIUM 8.4 mg/dL (8.5-10.1); CHLORIDE 118 mmol/L (98-107)
[2019-02-03] MEDS: LEVOTHYROXINE 75 MCG TABLET PO SCH (05:49)
[2019-02-03] MEDS: PANTOPROZOLE 40MG TABLET PO SCH (05:49)
[2019-02-03 07:17] VITALS: BP 153/81
[2019-02-03] MEDS: ESCITALOPRAM 10MG TABLET PO SCH (08:05)
[2019-02-03] MEDS: SUCRALFATE 1 GM/10 ML UDC PO SCH ×2 (08:06→11:49)
[2019-02-03] MEDS: APIXABAN 5 MG TABLET PO SCH (08:06)
[2019-02-03] MEDS: LISINOPRIL 40 MG TABLET PO SCH (08:06)
[2019-02-03] MEDS: SIMVASTATIN 40 MG TABLET PO SCH (08:06)
[2019-02-03] MEDS: ACETYLCYSTEINE 600 MG CAPSULE PO SCH (08:06)
[2019-02-03] MEDS: POTASSIUM CHLORIDE 20 MEQ TAB.ER.PRT PO SCH (08:06)
[2019-02-03] MEDS ORDERED: NORT10CA PO (11:08)
[2019-02-03] MEDS ORDERED: PANT40TA5 PO (11:08)
[2019-02-03] MEDS ORDERED: APIX5TAB4 PO (11:08)
[2019-02-03] MEDS ORDERED: POTASSIUM CHLORIDE 20 MEQ TAB.ER.PRT PO SCH (17:00)
[2019-02-03] MEDS ORDERED: NORTRIPTYLINE 10 MG CAPSULE PO SCH (21:00)
[2019-02-09] MEDS ORDERED: APIXABAN 5 MG TABLET PO SCH (09:00)
== END 2019-02-03 12:32 | disposition home health service (06) | DRG 175 ==
LOC: ED 08:37 → EDIP 09:18 → 3N 10:31 → 4WST 02-01 12:34 → DCLOUNGE 02-03 12:15
PROVIDERS: ADMIT Internal Medicine; ATTEND Internal Medicine
PROC: BD11YZZ Fluoroscopy of Esophagus using Other Contrast (ICD-10-PCS; principal; 2019-02-02)
DX: I26.99 Other pulmonary embolism without acute cor pulmonale (principal); N17.0 Acute kidney failure with tubular necrosis; K21.0 Gastro-esophageal reflux disease with esophagitis; E86.0 Dehydration; F32.9 Major depressive disorder, single episode, unspecified; F41.0 Panic disorder [episodic paroxysmal anxiety]; E03.9 Hypothyroidism, unspecified; E78.5 Hyperlipidemia, unspecified; E87.6 Hypokalemia; I10 Essential (primary) hypertension; R62.7 Adult failure to thrive; K76.0 Fatty (change of) liver, not elsewhere classified; Z90.710 Acquired absence of both cervix and uterus; Z68.23 Body mass index [BMI] 23.0-23.9, adult
CPT/HCPCS: 36415; 70491; 71260; 74174; 74220; 80048; 80053; 81001; 82607; 83690; 83735; 83880; 84100; 84439; 84443; 84484; 85025; 85520; 85651; 86140; 87086; 87324; 87400; 93005; 93970; G0378; J1644; Q9967; C9113; J7030

== ENCOUNTER 2019-03-17 13:44 | Emergency (ER) | payer MEDICARE, BC ==
[~2019-03-17] VITALS: Ht 160 cm; Wt 58.6 kg
[~2019-03-17 13:44] MED LIST changes: +APIX5TAB4 PO; +ESCI10TA PO; +NORT10CA PO; +PANT40TA5 PO; +SIMV20TA19 PO; -SIMV20TA3 PO
--- NOTE | 2019-03-17 15:03 | NUR ---
TO ROOM FROM LOBBY. NAD.
--- NOTE | 2019-03-17 15:15 | NUR ---
PT TO ED FROM HOME W/ FAMILY. HTN SINCE FRIDAY. PCP TOLD HER TO GO TO , CAMER HERE INSTEAD. 200S/100S. C/O CORLEY AND "A LITTLE" SOB. DENIES N/V/DIZZY/BLURRY VISION/CHEST PAIN. ST ON MONITOR AFTER WAALKING TO ROOM, NOW NSR 90S. A&OX4 GCS 15 PEARRL 3 MM BENDER 5/5 STRENGTH NEUROS GROSSLY INTACT. CALL OLIVEIRA IN REACH. AWAITING MD. REPORT TO PRANAV HEMPHILL.
--- NOTE | 2019-03-17 15:25 | NUR ---
Lab and xray at bedside.
[2019-03-17 15:41] LABS: BASOPHILS # (AUTO) 0.04 x10^3/uL (0-0.1); BASOPHILS % (AUTO) 1 % (0-1); EOSINOPHILS # (AUTO) 0.11 x10^3/uL (0-0.4); EOSINOPHILS % (AUTO) 2 % (1-7); LYMPHOCYTES # (AUTO) 1.56 x10^3/uL (1-3.4); LYMPHOCYTES % (AUTO) 26 % (22-44); MD NO; MEAN CORPUSCULAR HEMOGLOBIN 30.3 pg (27.0-34.8); MEAN CORPUSCULAR HGB CONC 32.6 g/dL (32.4-35.8); MEAN CORPUSCULAR VOLUME 93.1 fL (80-100); MEAN PLATELET VOLUME 8.6 fL (7.4-10.4); MONOCYTES # (AUTO) 0.41 x10^3/uL (0.2-0.8); MONOCYTES % (AUTO) 7 % (2-9); NEUTROPHILS # (AUTO) 3.89 x10^3/uL (1.8-6.8); NEUTROPHILS % (AUTO) 65 % (42-75); PLATELET COUNT 196 x10^3/uL (130-400); RED CELL DISTRIBUTION WIDTH 14.1 % (9.6-15.2)
--- NOTE | 2019-03-17 15:44 | NUR ---
Pt medicated per MAR. Pt remains on monitors and q15 min BP's. Pt and family aware of POC and VU. Call light in place.
[2019-03-17 15:50] LABS: ALBUMIN 3.6 g/dL (3.4-5.0); ANION GAP 6 mmol/L (5-15); CALCIUM 9.6 mg/dL (8.5-10.1); CHLORIDE 110 mmol/L (98-107); CREATININE 0.85 mg/dL (0.55-1.02)
[2019-03-17 16:34] VITALS: BP 161/93
--- NOTE | 2019-03-17 16:39 | NUR ---
Pt dc'd to self care. Edcuation provided on medications, fluids, follow-up and S/Sx to return. Pt VU. Pt ambulated out of ER.
[2019-04-01] MEDS ORDERED: OMEP-110 PO (16:00)
== END 2019-03-17 16:41 | disposition home or self-care (01) ==
LOC: ED 16:05
DX: I10 Essential (primary) hypertension (principal)
CPT/HCPCS: 36415; 71045; 80048; 82040; 85025; 93005; 99284

== ENCOUNTER → 2019-11-02 | Outpatient (CLI) | payer MEDICARE, BC | END | disposition home or self-care (01) | LOC: CFH 10:23 | PROVIDERS: ATTEND Internal Medicine | DX: R91.8 Other nonspecific abnormal finding of lung field (principal); N28.1 Cyst of kidney, acquired; I25.10 Atherosclerotic heart disease of native coronary artery without angina pectoris | CPT/HCPCS: 71250 ==

== ENCOUNTER 2020-03-19 08:27 | Observation (INO) | payer MEDICARE, BC ==
[~2020-03-19] VITALS: Ht 160 cm; Wt 61.8 kg
[~2020-03-19 08:27] MED LIST changes: +AMLO-211 PO; -AMLO10TA8 PO; -ESCI10TA PO; +ESCI10TA5 PO; -PANT40TA5 PO; +PANT40TA6 PO
--- NOTE | 2020-03-19 08:41 | NUR ---
MD Garcias at bedside.
--- NOTE | 2020-03-19 08:51 | NUR ---
Izaiah Galicia okay to update. .
[2020-03-19] MEDS ORDERED: SODIUM CHLORIDE FLUSH 10ML SYR IVF ONE (09:00)
--- NOTE | 2020-03-19 09:17 | NUR ---
Pt to imaging.
[2020-03-19 09:25] LABS: BASOPHILS % (AUTO) 1 % (0-1); EOSINOPHILS % (AUTO) 3 % (1-7); LYMPHOCYTES % (AUTO) 24 % (22-44); MEAN CORPUSCULAR HEMOGLOBIN 30.1 pg (27.0-34.8); MEAN CORPUSCULAR HGB CONC 33.3 g/dL (32.4-35.8); MEAN PLATELET VOLUME 8.6 fL (7.4-10.4); MONOCYTES % (AUTO) 7 % (2-9); NEUTROPHILS % (AUTO) 64 % (42-75); PLATELET COUNT 179 x10^3/uL (130-400); RED BLOOD COUNT 4.02 x10^6/uL (3.82-5.3); RED CELL DISTRIBUTION WIDTH 12.7 % (9.6-15.2)
[2020-03-19 09:29] LABS: MD NO
[2020-03-19 09:37] LABS: ALBUMIN 3.5 g/dL (3.4-5.0); ANION GAP 3 mmol/L (5-15); CALCIUM 9.3 mg/dL (8.5-10.1); CHLORIDE 114 mmol/L (98-107)
[2020-03-19 09:41] LABS: ALANINE AMINOTRANSFERASE 26 U/L (12-78); ALKALINE PHOSPHATASE 117 U/L (45-117); BILIRUBIN,TOTAL 0.4 mg/dL (0.2-1.0); CREATININE 0.91 mg/dL (0.55-1.02); TOTAL PROTEIN 7.5 g/dL (6.4-8.2)
[2020-03-19 09:58] LABS: MICROSCOPIC NOT IND
--- NOTE | 2020-03-19 10:14 | NUR ---
Pt to imaging now.
[2020-03-19] MEDS ORDERED: SODIUM CHLORIDE 0.9%, 500ML IVBOLUS ONE (10:30)
--- NOTE | 2020-03-19 10:50 | NUR ---
Pt resting in bed, all needs met at this time. NADN, respirations even and unlabored.
--- NOTE | 2020-03-19 11:36 | NUR ---
Pt failed roadtest. Pt leaning to the left when standing and had unsteady gait. Pt up to bedside commode with assistance at this time.
--- NOTE | 2020-03-19 11:40 | NUR ---
Pt connected back to monitors, noted O2 saturation drop in the 80s with exertion.
[2020-03-19] MEDS ORDERED: FERR324T5 PO (13:55)
[2020-03-19] MEDS ORDERED: CARV3.122 PO (13:55)
[2020-03-19 13:56] VITALS: BP 157/82
[2020-03-19] MEDS ORDERED: OMNIPAQUE 350 MG/ML, 100ML BOTTLE ONE (14:50)
[2020-03-19 14:52] LABS: TROPONIN I < 0.015 ng/mL (0.000-0.045)
[2020-03-19] MEDS ORDERED: ONDANSETRON 2MG/ML, 2ML IVPush PRN (15:00)
[2020-03-19] MEDS ORDERED: ACETAMINOPHEN 325 MG TABLET PO PRN (15:00)
[2020-03-19 15:55] LABS: TROPONIN I < 0.015 ng/mL (0.000-0.045)
[2020-03-19] MEDS: APIXABAN 5 MG TABLET PO SCH (16:28)
[2020-03-19] MEDS: PANTOPRAZOLE 40MG TABLET PO SCH (16:28)
[2020-03-19] MEDS: FERROUS SULFATE 325 MG TABLET PO SCH (16:28)
[2020-03-19 20:13] VITALS: BP 138/78
[2020-03-19] MEDS ORDERED: SIMVASTATIN 20 MG TABLET PO SCH (21:00)
[2020-03-19] MEDS ORDERED: NORTRIPTYLINE 10 MG CAPSULE PO SCH (21:00)
[2020-03-19 21:06] LABS: TROPONIN I < 0.015 ng/mL (0.000-0.045)
[2020-03-19] MEDS: LISINOPRIL 10 MG TABLET PO SCH (21:29)
[2020-03-19] MEDS: CARVEDILOL 3.125 MG TABLET PO SCH (21:30)
[2020-03-20 01:11] VITALS: BP 120/67
[2020-03-20] MEDS: PANTOPRAZOLE 40MG TABLET PO SCH ×2 (05:27→15:40)
[2020-03-20] MEDS: APIXABAN 5 MG TABLET PO SCH (05:27)
[2020-03-20 05:31] LABS: BASOPHILS % (AUTO) 1 % (0-1); EOSINOPHILS % (AUTO) 2 % (1-7); LYMPHOCYTES % (AUTO) 20 % (22-44); MEAN CORPUSCULAR HGB CONC 34.3 g/dL (32.4-35.8); MEAN PLATELET VOLUME 8.6 fL (7.4-10.4); MONOCYTES % (AUTO) 7 % (2-9); NEUTROPHILS % (AUTO) 70 % (42-75); PLATELET COUNT 159 x10^3/uL (130-400); RED BLOOD COUNT 3.54 x10^6/uL (3.82-5.3); RED CELL DISTRIBUTION WIDTH 12.9 % (9.6-15.2)
[2020-03-20 05:34] LABS: ALANINE AMINOTRANSFERASE 25 U/L (12-78); ANION GAP 2 mmol/L (5-15); CALCIUM 8.9 mg/dL (8.5-10.1); CHLORIDE 112 mmol/L (98-107); CREATININE 0.95 mg/dL (0.55-1.02)
[2020-03-20 05:37] LABS: ALKALINE PHOSPHATASE 107 U/L (45-117); BILIRUBIN,TOTAL 0.5 mg/dL (0.2-1.0); TOTAL PROTEIN 6.4 g/dL (6.4-8.2)
[2020-03-20 05:51] LABS: MD NO
[2020-03-20] MEDS ORDERED: LEVOTHYROXINE 100 MCG TABLET PO SCH (06:00)
[2020-03-20 06:08] VITALS: BP 123/66
[2020-03-20] MEDS: LISINOPRIL 10 MG TABLET PO SCH (09:17)
[2020-03-20] MEDS: CARVEDILOL 3.125 MG TABLET PO SCH (09:18)
[2020-03-20 11:26] VITALS: BP 121/65
[2020-03-20] MEDS: FERROUS SULFATE 325 MG TABLET PO SCH (15:40)
== END 2020-03-20 17:38 | disposition home or self-care (01) ==
LOC: ED 09:46 → INTOOBSV 12:09 → EDIP 12:09 → 5SO 13:40 → 4WST 16:26 → 5SO 16:29 → 4WST 17:05
PROVIDERS: ADMIT Internal Medicine; ATTEND Internal Medicine
DX: J96.01 Acute respiratory failure with hypoxia (principal); Z20.822 Contact with and (suspected) exposure to COVID-19; G90.8 Other disorders of autonomic nervous system; I10 Essential (primary) hypertension; E78.5 Hyperlipidemia, unspecified; E03.9 Hypothyroidism, unspecified; K29.40 Chronic atrophic gastritis without bleeding; K22.8 Other specified diseases of esophagus; K21.9 Gastro-esophageal reflux disease without esophagitis; I26.99 Other pulmonary embolism without acute cor pulmonale; D68.69 Other thrombophilia; R27.0 Ataxia, unspecified; I70.0 Atherosclerosis of aorta; F41.9 Anxiety disorder, unspecified; Z88.0 Allergy status to penicillin; Z79.01 Long term (current) use of anticoagulants; Z79.899 Other long term (current) drug therapy; Z90.710 Acquired absence of both cervix and uterus; Z86.711 Personal history of pulmonary embolism
CPT/HCPCS: 36415; 70450; 70551; 71045; 71275; 80053; 81003; 84484; 85025; 93005; 93306; 99285; G0378; J7040; Q9967; U0003